=== PATIENT | male | born 1965 | race Hispanic/Latino ===

== ENCOUNTER 2020-04-17 12:48 | Inpatient (IN) | payer OTHER ==
[2020-04-17] VITALS (9 sets, daily range): BP systolic 78–121; BP diastolic 54–73
[~2020-04-17] VITALS: Ht 165.1 cm; Wt 101.9 kg
[2020-04-17] MEDS ORDERED: CLOP75TA14 PO (15:00)
[2020-04-17] MEDS ORDERED: ATEN100T PO (15:00)
[2020-04-17] MEDS ORDERED: METF-446 PO (15:09)
[2020-04-17] MEDS ORDERED: LISI1TAB32 PO (15:09)
[2020-04-17] MEDS ORDERED: GEMF600T PO (15:09)
[2020-04-17] MEDS ORDERED: ASPI-1197 PO (15:09)
[2020-04-17] MEDS ORDERED: LOVA20TA3 PO (15:09)
[2020-04-17] MEDS ORDERED: CIPR-279 PO (15:09)
[2020-04-17 15:35] LABS: BASOPHILS % (AUTO) 0.5 % (0.0-5.0); EOSINOPHILS % (AUTO) 0.9 % (0.0-8.0); HEMATOCRIT 38.2 % (42-54); LYMPHOCYTES % (AUTO) 32.9 % (21.0-51.0); MEAN CORPUSCULAR HEMOGLOBIN 28.4 pg (27.0-33.0); MEAN CORPUSCULAR HGB CONC 33.2 g/dL (32.0-36.0); MEAN CORPUSCULAR VOLUME 85.5 fL (79-99); MONOCYTES % (AUTO) 9.9 % (3.0-13.0); NEUTROPHILS % (AUTO) 55.4 % (40.0-77.0); NUCLEATED RED BLOOD CELLS 0.2 % (0.0-0.19); PLATELET COUNT (AUTO) 217 K/uL (130-400); RED BLOOD CELL COUNT(AUTO) 4.47 MIL/uL (4.50-6.20); RED CELL DISTRIBUTION WIDTH 13.4 % (11.0-15.5); WHITE BLOOD COUNT (AUTO) 11.2 K/uL (4.8-10.8)
[2020-04-17 15:48] LABS: INR 1.14 (0.85-1.15); PROTHROMBIN TIME 12.3 SEC (9.6-11.6)
[2020-04-17 15:49] LABS: CREATININE 1.8 mg/dL (0.5-1.5); POTASSIUM 3.5 mmol/L (3.5-5.1)
[2020-04-17 15:53] LABS: ALBUMIN 2.8 g/dL (3.5-5.0); BILIRUBIN,TOTAL 0.5 mg/dL (0.2-1.0); TOTAL PROTEIN, SERUM 7.1 g/dL (6.0-8.3)
[2020-04-17] MEDS ORDERED: IOHEXOL-350 50ML VIAL IV ONE (16:14)
[2020-04-17] MEDS ORDERED: LIDOCAINE HCL 2% 20ML ONE (16:14)
[2020-04-17] MEDS ORDERED: VERAPAMIL HCL 2.5 MG/ML VIAL ONE (16:14)
[2020-04-17] MEDS ORDERED: IOHEXOL 350 MG/ML 100ML INFUS..BTL IV ONE (16:14)
[2020-04-17] MEDS ORDERED: HEPARIN SODIUM 1000UNIT/ML 10ML VIAL ONE (16:14)
[2020-04-17] MEDS ORDERED: NITROGLYCERIN 2 MG/VIAL VIAL IV ONE (16:14)
[2020-04-17] MEDS ORDERED: NICARDIPINE HCL 25 MG/10 ML ML IV ONE (16:17)
[2020-04-17] MEDS ORDERED: FENTANYL CITRATE PF 50 MCG/1 ML 2ML VIAL ONE (16:27)
[2020-04-17] MEDS ORDERED: MIDAZOLAM HCL 1 MG/ML 2ML VIAL ONE (16:27)
[2020-04-17] MEDS: SODIUM CHLORIDE 0.9% 10 ML VIAL IVP SCH (17:45)
--- NOTE | 2020-04-17 18:49 | NUR ---
RECEIVED PT S/P [facility]. PT NOTED WITH SEVERAL BLOCKAGES AND WILL NEED OPEN HEART SURGERY PER REPORT. CONSULT FOR DR MONTIEL WRITTEN. RIGHT RADIAL BAND IN PLACE. 9ML OF AIR INFLATED. BEGAN DECOMPRESSION AT 1835. CONTINUOS DECOMPRESSION IS EVERY 15 MINUTES WHILE MAINTAINING HEMOSTASIS UNLESS OTHER BANDA NOTED. V/S ARE STABLE. PT SITTING UP AT SIDE OF BED, NOTIFYING FAMILY OF CONDITION AND STATUS. PLAVIX IS TO BE HELD UNTIL SEEN BY STS.
[2020-04-17] MEDS: METOPROLOL TARTRATE 25 MG TAB PO SCH (20:44)
[2020-04-17] MEDS: ACETAMINOPHEN 325 MG TAB PO PRN (20:44)
[2020-04-17] MEDS: FAMOTIDINE/PF 20 MG/2 ML VIAL IV SCH (20:44)
[2020-04-17] MEDS ORDERED: NITROGLYCERIN 0.4 MG SL TAB SL ONE (22:18)
[2020-04-17] MEDS ORDERED: HEPARIN 25000 UNITS/250 ML D5W 250 ML IV SCH (23:30)
--- NOTE | 2020-04-17 23:50 | NUR ---
Pt declining carotid ultrasound with tech. Pt will not stop moving in bed due to anxiety/SOB. Tech to reengage at later time. Discussed w/Dr. Grullon
[2020-04-17] MEDS ORDERED: HEPARIN 25000 UNITS/250 ML D5W 250 ML IV ONE (23:56)
[2020-04-18] VITALS (26 sets, daily range): BP systolic 91–132; BP diastolic 53–102
[2020-04-18] MEDS: ACETAMINOPHEN 325 MG TAB PO PRN (00:29)
[2020-04-18 00:44] LABS: BASOPHILS % (AUTO) 0.3 % (0.0-5.0); EOSINOPHILS % (AUTO) 0.1 % (0.0-8.0); HEMATOCRIT 39.1 % (42-54); LYMPHOCYTES % (AUTO) 21.6 % (21.0-51.0); MEAN CORPUSCULAR HEMOGLOBIN 28.5 pg (27.0-33.0); MEAN CORPUSCULAR HGB CONC 32.5 g/dL (32.0-36.0); MEAN CORPUSCULAR VOLUME 87.9 fL (79-99); MONOCYTES % (AUTO) 9.5 % (3.0-13.0); NEUTROPHILS % (AUTO) 67.8 % (40.0-77.0); NUCLEATED RED BLOOD CELLS 0.1 % (0.0-0.19); PLATELET COUNT (AUTO) 206 K/uL (130-400); RED BLOOD CELL COUNT(AUTO) 4.45 MIL/uL (4.50-6.20); RED CELL DISTRIBUTION WIDTH 13.4 % (11.0-15.5); WHITE BLOOD COUNT (AUTO) 15.3 K/uL (4.8-10.8)
[2020-04-18] MEDS ORDERED: HEPARIN SODIUM 5000UNIT/ML 1ML VIAL ONE (01:38)
[2020-04-18] MEDS: SODIUM CHLORIDE 0.9% 10 ML VIAL IVP SCH ×3 (01:45→17:45)
[2020-04-18 05:32] LABS: BASOPHILS % (AUTO) 0.3 % (0.0-5.0); EOSINOPHILS % (AUTO) 0.1 % (0.0-8.0); HEMATOCRIT 39.2 % (42-54); LYMPHOCYTES % (AUTO) 17.8 % (21.0-51.0); MEAN CORPUSCULAR HEMOGLOBIN 28.2 pg (27.0-33.0); MEAN CORPUSCULAR HGB CONC 32.1 g/dL (32.0-36.0); MEAN CORPUSCULAR VOLUME 87.7 fL (79-99); MONOCYTES % (AUTO) 8.2 % (3.0-13.0); PLATELET COUNT (AUTO) 217 K/uL (130-400); RED BLOOD CELL COUNT(AUTO) 4.47 MIL/uL (4.50-6.20); RED CELL DISTRIBUTION WIDTH 13.4 % (11.0-15.5); WHITE BLOOD COUNT (AUTO) 10.7 K/uL (4.8-10.8)
[2020-04-18 05:42] LABS: INR 1.29 (0.85-1.15); PROTHROMBIN TIME 13.8 SEC (9.6-11.6)
[2020-04-18 05:50] LABS: ALBUMIN 2.8 g/dL (3.5-5.0); CREATININE 2.5 mg/dL (0.5-1.5); POTASSIUM 5.6 mmol/L (3.5-5.1); TOTAL PROTEIN, SERUM 7.3 g/dL (6.0-8.3)
[2020-04-18 05:56] LABS: B-TYPE NATRIURETIC PEPTIDE 1380 pg/mL (0-100)
[2020-04-18 06:01] LABS: HEMOGLOBIN A1C 12.3 % (4.0-6.0)
[2020-04-18] MEDS: INSULIN LISPRO 100 UNIT/ML 3ML SQ SCH ×4 (06:47→22:56)
--- NOTE | 2020-04-18 06:56 | NUR ---
Pt with fall shortly after 0600. of patient was in room with pt and assisting pt with bathroom while fall occurred. While assisting pt with bathroom disconnected heparin gtt for maneuvering. Two staff members enforced to in Nepali to not disconnect IV tubing again. Both pt and deny pt hitting his head. Page out to provider regarding fall. No neurological deficits noted with pt.
[2020-04-18] MEDS ORDERED: FUROSEMIDE 10 MG/ML 4ML VIAL IV SCH (08:00)
[2020-04-18] MEDS ORDERED: ENOXAPARIN SODIUM 40 MG/0.4 ML SYRINGE SQ SCH (09:00)
[2020-04-18] MEDS: METOPROLOL TARTRATE 25 MG TAB PO SCH ×2 (09:00→22:47)
--- NOTE | 2020-04-18 09:00 | NUR ---
bird held bp 97/47. AWARE
[2020-04-18] MEDS: ASPIRIN 81MG TAB.CHEW PO SCH (09:05)
[2020-04-18] MEDS: ATORVASTATIN CALCIUM 40 MG TABLET PO SCH (09:05)
[2020-04-18] MEDS: FAMOTIDINE/PF 20 MG/2 ML VIAL IV SCH ×2 (09:05→21:00)
[2020-04-18] MEDS: FUROSEMIDE 100 MG in SODIUM CHLORIDE 0.9% 100 ML IV SCH (09:45)
--- NOTE | 2020-04-18 09:46 | NUR ---
Report given to nurse in day patient. Patient going to rm 4. Pulmonology consult discussed. Handoff nurse will call in consult. Lasix bolus dose has been started. Peripheral IV #20 started at [facility].
--- NOTE | 2020-04-18 10:00 | NUR ---
xiang notes patient pending transfer to icu- deferred discussion with spouse for dc planning at this time Addendum: 04/18/20 at 1947 by SARITA SHANKS RN CM Amended: Links added.
--- NOTE | 2020-04-18 10:30 | NUR ---
PTT 106.9 HEPARIN DRIP WAS STOPPED ACCORDING TO PROTOCOL AND RESUMED AGAIN AT 1130 AT 15UNITS/HR.
--- NOTE | 2020-04-18 10:30 | NUR ---
ICU TRANSFER PT ARRIVED TO ICU DP#[id number]. PT IN ACUTE RESPIRATORY DISTRESS. VERY ANXIOUS AND UNABLE TO LAY FLAT. NONREBREATHER AT 15L. AFTER ABOUT 20-30 MIN PT WAS ABLE TO HAVE LESS LABORED BREATHING AND TRY TO REMAIN CALM. LASIX DRIP AT 10ML/HR. MAHAJAN CATHETER WAS ATTEMPTED BUT UNSUCCESSFUL. MULTIPLE ATTEMPTS FOR PLACEMENT OF MAHAJAN CATHETER WERE DONE INCLUDING 12F KUDA. ETOH WITHDRAWAL PROTOCOL WAS INITIATED. AT [address]30 [address] GUTHRIE SPOKE WITH PT ABOUT THE NEED FOR IMPELLA DEVICE. CONSENT OBTAINED BY , CALDERON PEDRO. PT TAKEN BY MANAGER [employer] CREW AT 1330.
[2020-04-18] MEDS ORDERED: CHLORDIAZEPOXIDE HCL 25 MG CAP PO PRN (11:30)
[2020-04-18] MEDS ORDERED: LORAZEPAM 2 MG/ML 1 ML VIAL IVP PRN (11:30)
[2020-04-18] MEDS ORDERED: PHARMACY COMMUNICATION MISC PRN (11:30)
[2020-04-18 11:33] LABS: ABG BASE EXCESS -11.2 mmol/L (-2.0-3.0); ABG HCO3 13.1 mmol/L (21.0-28.0); ABG OXYGEN SATURATION 95.7 % (95.0-99.0); ABG PCO2 26 mmHg (35-48)
[2020-04-18] MEDS: SODIUM POLYSTYRENE SULFONATE 15 GM/60 ML ML PO SCH (11:45)
[2020-04-18] MEDS ORDERED: HEPARIN 25000 UNITS/250 ML D5W 0 ML IV ONE (13:28)
[2020-04-18] MEDS ORDERED: HEPARIN SODIUM 1000UNIT/ML 10ML VIAL ONE (13:29)
[2020-04-18] MEDS ORDERED: MIDAZOLAM HCL 1 MG/ML 2ML VIAL ONE (13:29)
[2020-04-18] MEDS ORDERED: FENTANYL CITRATE PF 50 MCG/1 ML 2ML VIAL ONE (13:29)
[2020-04-18] MEDS ORDERED: IOHEXOL 350 MG/ML 100ML INFUS..BTL IV ONE (13:29)
[2020-04-18] MEDS ORDERED: LIDOCAINE HCL 2% 20ML ONE (13:30)
[2020-04-18] MEDS ORDERED: LIDOCAINE PF 2% 5ML ABBOJECT ONE (13:55)
[2020-04-18] MEDS ORDERED: DOPAMINE HCL 400 MG/D5%-WATER 0 ML IV ONE (13:55)
[2020-04-18] MEDS ORDERED: ATROPINE SULFATE 0.1 MG/ML 10 ML SYG IVP ONE (13:55)
[2020-04-18] MEDS ORDERED: PERFLUTREN PROTEIN-A MICROSPHR 0.22 MG/ML VIAL IV ONE (14:41)
[2020-04-18] MEDS ORDERED: SODIUM CHLORIDE 0.9% 500ML 500 ML IV SCH (15:43)
[2020-04-18] MEDS ORDERED: HEPARIN 25000 UNITS/250 ML D5W 250 ML IV SCH (15:45)
[2020-04-18] MEDS ORDERED: HEPARIN SODIUM 5000 UNIT/ML 25,000 UNIT in DEXTROSE 5%-WATER 495 ML IV SCH (15:45)
--- NOTE | 2020-04-18 16:08 | NUR ---
RD NOTIFICATION Pt admitted with Acute coronary syndrome. History of DM, HTN, Vascular Dz, heart Catheterization. Pt tolerating 75gm CCD with no report of GI distress, Good PO intake at 100%. Monitored labs: BG 391, A1C 12.3%, Cr 2.5, GFR 29, BUN 40, ALT 206, AST 271, LDL 120, Alb 2.8. Obesity Class II. Recommend Renal Non-Dialysis diet order Recommend 30GM CCD modification Diabetes Nutrition Education (Taiwanese) Faxed to Day Pt, RN notified. RD to continue to monitor. Please notify as additional nutrition concerns arise. Thank you. Addendum: 04/18/20 at [address] Amended: Links added.
--- NOTE | 2020-04-18 16:14 | NUR ---
NUTRITION SYSTEM SUPPORT TECHNICIAN-Assisted Nutrition education. Diabetes Nutrition Education (German) Faxed to Day Pt RN notified. Addendum: 04/18/20 at [address] Amended: Links added.
--- NOTE | 2020-04-18 16:42 | NUR ---
ASSESSMENT Received pt to CVR/PACU bed 19 from production laborer. Upon arrival, pt AA - restless but cooperative. ST on tele with distant apical heart tones. Denies acute chest pain or pressure. VS as recorded. Impella in use via right femoral artery sheath - no hematoma noted but oozing noted from insertion site. Right femoral vein cannulated with 9fr sheath with PA catheter introduced via this site. Pending post procedure CXR for confirmation of PA catheter placement. Left femoral arterial line in place - 6fr sheath. Waveform acceptable. Skin is warm, dry. PIV x2 patent to RH and RAC. Heparin gtt infusing @15units/kg/hr, lasix gtt @10mg/hr. Pt due to void post procedure. Pt made aware of activity restrictions post procedure - voiced understanding. Initial post procedure care regarding Impella carried out - ECHO performed at bedside for catheter placement verification. Assessment completed/recorded.
[2020-04-18 17:40] LABS: ABG BASE EXCESS -6.1 mmol/L (-2.0-3.0); ABG HCO3 18.2 mmol/L (21.0-28.0); ABG PCO2 32 mmHg (35-48)
[2020-04-18 17:46] LABS: ABG OXYGEN SATURATION 48.2 % (95.0-99.0); BASE EXCESS,VENOUS BLOOD GAS -4.4 (-2.0-3.0); HCO3,VENOUS BLOOD GAS 20.8 (21.0-28.0); PCO2,VENOUS BLOOD GAS 39 (35-48); PH,VENOUS BLOOD GAS 7.347 (7.350-7.450)
--- NOTE | 2020-04-18 17:48 | NUR ---
HEMODYNAMICS Utilizing Mary calculation, CO 3.4L/min, CI 1.6L/min/m2, stroke volume 34mL/beat.
--- NOTE | 2020-04-18 18:30 | NUR ---
ULTRASOUND Renal US performed at bedside.
--- NOTE | 2020-04-18 19:00 | NUR ---
MD VISIT in to see pt - updated. Current hemodynamics reviewed with MD. Additional orders received - refer to EMR. Care of pt endorsed to 7P RN.
--- NOTE | 2020-04-18 19:00 | NUR ---
Dr. Gonsalves at bedside and stated he is pleased with the current status of patient. Orders received for main medication.
[2020-04-18] MEDS ORDERED: HEPARIN SODIUM 5000 UNIT/ML 25,000 UNIT in DEXTROSE 5%-WATER 500 ML SQ SCH (19:15)
--- NOTE | 2020-04-18 19:30 | NUR ---
Dr. Castro called for consult notification.
[2020-04-18] MEDS: FENTANYL CITRATE PF 50 MCG/1 ML 2ML VIAL IVP PRN (20:10)
[2020-04-19] VITALS (19 sets, daily range): BP systolic 84–129; BP diastolic 63–100
[2020-04-19 00:08] LABS: ABG BASE EXCESS -5.7 mmol/L (-2.0-3.0); ABG HCO3 18.8 mmol/L (21.0-28.0); ABG OXYGEN SATURATION 95.3 % (95.0-99.0); ABG PCO2 33 mmHg (35-48)
[2020-04-19 00:13] LABS: ABG OXYGEN SATURATION 53.5 % (95.0-99.0); BASE EXCESS,VENOUS BLOOD GAS -4.9 (-2.0-3.0); PCO2,VENOUS BLOOD GAS 42 (35-48); PH,VENOUS BLOOD GAS 7.319 (7.350-7.450)
--- NOTE | 2020-04-19 00:21 | NUR ---
HEMODYNAMICS Utilizing Mary calculation, CO 4.0L/min, CI 1.8L/min/m2, stroke volume 38mL/beat.
[2020-04-19] MEDS: FENTANYL CITRATE PF 50 MCG/1 ML 2ML VIAL IVP PRN ×3 (00:30→08:16)
[2020-04-19] MEDS: SODIUM CHLORIDE 0.9% 10 ML VIAL IVP SCH ×3 (02:24→17:49)
[2020-04-19 05:06] LABS: ABG BASE EXCESS -4.3 mmol/L (-2.0-3.0); ABG HCO3 19.7 mmol/L (21.0-28.0); ABG OXYGEN SATURATION 93.6 % (95.0-99.0); ABG PCO2 33 mmHg (35-48)
[2020-04-19 05:08] LABS: ABG BASE EXCESS -3.4 mmol/L (-2.0-3.0); ABG HCO3 21.8 mmol/L (21.0-28.0); ABG OXYGEN SATURATION 45.8 % (95.0-99.0); ABG PCO2 40 mmHg (35-48)
--- NOTE | 2020-04-19 05:11 | NUR ---
HEMODYNAMICS Utilizing Mary calculation, CO 3.5L/min, CI 1.7L/min/m2, stroke volume 37mL/beat.
[2020-04-19 05:53] LABS: BASOPHILS % (AUTO) 0.5 % (0.0-5.0); EOSINOPHILS % (AUTO) 0.1 % (0.0-8.0); HEMATOCRIT 33.7 % (42-54); MEAN CORPUSCULAR HEMOGLOBIN 28.4 pg (27.0-33.0); MEAN CORPUSCULAR HGB CONC 32.9 g/dL (32.0-36.0); MEAN CORPUSCULAR VOLUME 86.2 fL (79-99); MONOCYTES % (AUTO) 9.2 % (3.0-13.0); NEUTROPHILS % (AUTO) 68.5 % (40.0-77.0); NUCLEATED RED BLOOD CELLS 0.4 % (0.0-0.19); PLATELET COUNT (AUTO) 182 K/uL (130-400); RED BLOOD CELL COUNT(AUTO) 3.91 MIL/uL (4.50-6.20); RED CELL DISTRIBUTION WIDTH 13.4 % (11.0-15.5); WHITE BLOOD COUNT (AUTO) 10.7 K/uL (4.8-10.8)
[2020-04-19 06:43] LABS: ALBUMIN 2.4 g/dL (3.5-5.0); BILIRUBIN,TOTAL 1.2 mg/dL (0.2-1.0); CREATININE 2.9 mg/dL (0.5-1.5); MAGNESIUM 1.9 mg/dL (1.80-2.40); POTASSIUM 4.3 mmol/L (3.5-5.1); TOTAL PROTEIN, SERUM 6.6 g/dL (6.0-8.3)
[2020-04-19] MEDS: FAMOTIDINE/PF 20 MG/2 ML VIAL IV SCH (08:15)
[2020-04-19] MEDS: FUROSEMIDE 100 MG in SODIUM CHLORIDE 0.9% 100 ML IV SCH (08:17)
[2020-04-19] MEDS: ASPIRIN 81MG TAB.CHEW PO SCH (08:27)
[2020-04-19] MEDS: METOPROLOL TARTRATE 25 MG TAB PO SCH (08:27)
[2020-04-19] MEDS ORDERED: FOLIC ACID 1 MG TABLET PO SCH (09:00)
[2020-04-19] MEDS ORDERED: THIAMINE HCL 100 MG/ML 2ML VIAL IM SCH (09:00)
[2020-04-19] MEDS ORDERED: MULTIVITAMIN TABLET PO SCH (09:00)
[2020-04-19] MEDS: INSULIN LISPRO 100 UNIT/ML 3ML SQ SCH (09:31)
[2020-04-19] MEDS ORDERED: ETOMIDATE 2 MG/ML 10 ML VIAL ONE (09:39)
[2020-04-19] MEDS ORDERED: SUCCINYLCHOLINE CHLORIDE 20 MG/ML 10 ML VIAL ONE (09:40)
[2020-04-19] MEDS ORDERED: DEXMEDETOMIDINE HCL 200 MCG in SODIUM CHLORIDE 0.9% 50 ML IV SCH (09:45)
--- NOTE | 2020-04-19 09:50 | NUR ---
INTUBATED PT STARTED TO HAVE ACUTE RESPIRATORY FAILURE WITH ABDOMINAL BREATHING. INTUBATION ORDERS GIVEN BY SEAMUS ALMANZAR. DR. REY INTUBATED PT AT 0950. BP STARTED TO DROP AND LEVOPHED WAS STARTED. DR. ZAVALA CAME BY TO SEE PT AND ORDERED TO HOLD LASIX. DR. MONTIEL STATED THAT PT IS TOO UNSTABLE FOR SURGERY.
[2020-04-19] MEDS ORDERED: FENTANYL CITRATE PF 0.05 MG/ML 1,000 MCG in SODIUM CHLORIDE 0.9% 100 ML IVPB SCH (10:00)
[2020-04-19] MEDS ORDERED: MIDAZOLAM 100MG-0.9% NS 100ML 100ML BAG IV SCH (10:00)
[2020-04-19 10:22] LABS: ABG BASE EXCESS -13.4 mmol/L (-2.0-3.0); ABG HCO3 12.7 mmol/L (21.0-28.0); ABG OXYGEN SATURATION 92.7 % (95.0-99.0); ABG PCO2 30 mmHg (35-48)
[2020-04-19] MEDS ORDERED: SODIUM BICARB 50MEQ 50ML VIAL IV SCH ×3 (11:00→16:00)
[2020-04-19] MEDS ORDERED: NOREPINEPHRINE BITARTRATE 8 MG in SODIUM CHLORIDE 0.9% 250 ML IV SCH (11:00)
[2020-04-19] MEDS: ATORVASTATIN CALCIUM 40 MG TABLET PO SCH (11:12)
[2020-04-19] MEDS: SODIUM POLYSTYRENE SULFONATE 15 GM/60 ML ML PO SCH (11:14)
--- NOTE | 2020-04-19 13:00 | NUR ---
HEMODYNAMICS BASED ON ARTERIAL AND VENOUS ABG. CARDIAC OUTPUT 4.6L/MIN. CARDIAC INDEX 2.2L/MIN/M. STROKE VOLUME 42ML/BEAT
[2020-04-19 13:24] LABS: ABG BASE EXCESS -14.4 mmol/L (-2.0-3.0); ABG HCO3 10.6 mmol/L (21.0-28.0); ABG OXYGEN SATURATION 94.6 % (95.0-99.0); ABG PCO2 24 mmHg (35-48)
[2020-04-19 13:27] LABS: ABG OXYGEN SATURATION 61.4 % (95.0-99.0); BASE EXCESS,VENOUS BLOOD GAS -12.1 (-2.0-3.0); HCO3,VENOUS BLOOD GAS 14.2 (21.0-28.0); PCO2,VENOUS BLOOD GAS 34 (35-48)
[2020-04-19] MEDS ORDERED: SODIUM BICARB 8.4% 50ML SYRING 150 MEQ in DEXTROSE 5%-WATER 1,000 ML IV SCH (14:00)
[2020-04-19] MEDS ORDERED: VASOPRESSIN 20 UNITS in SODIUM CHLORIDE 0.9% 100 ML IV SCH (14:00)
--- NOTE | 2020-04-19 14:00 | NUR ---
NO PULSE ON RIGHT LEG DR. ZAVALA CAME AT 1040 AND SAW PT. INFORMED OF NO PEDAL PULSE ON RIGHT FOOT. PAGED AGAIN AT 1400 AND INFORMED OF PT'S DETERORATING STATUS, SEVERE HYPOTENSION. ASLO INFORMED OF NO PULSE, MOTTLED, COLD RIGHT EXTREMITY.
[2020-04-19] MEDS ORDERED: FUROSEMIDE 10 MG/ML 4ML VIAL IV SCH (14:15)
[2020-04-19] MEDS ORDERED: EPINEPHRINE 2 MG in SODIUM CHLORIDE 0.9% 250 ML IV SCH (15:00)
[2020-04-19] MEDS ORDERED: ALBUMIN (HUMAN) 5% 250 ML IV SCH (15:30)
--- NOTE | 2020-04-19 15:40 | NUR ---
FAMILY VISIT , CALDERON PEDRO CAME TO SEE PT AND INFORMED OF DETERIORATING CONDITION. REQUESTED PT BE FULL CODE.
[2020-04-19] MEDS ORDERED: EPINEPHRINE 10 MG in SODIUM CHLORIDE 0.9% 250 ML IV SCH (16:45)
[2020-04-19] MEDS ORDERED: NOREPINEPHRINE BITARTRATE 32 MG in SODIUM CHLORIDE 0.9% 250 ML IV SCH (16:45)
[2020-04-19 16:46] LABS: HEMATOCRIT 32.6 % (42-54); MEAN CORPUSCULAR HGB CONC 31.3 g/dL (32.0-36.0); MEAN CORPUSCULAR VOLUME 92.6 fL (79-99); NUCLEATED RED BLOOD CELLS 3.5 % (0.0-0.19); PLATELET COUNT (AUTO) 174 K/uL (130-400); RED BLOOD CELL COUNT(AUTO) 3.52 MIL/uL (4.50-6.20); RED CELL DISTRIBUTION WIDTH 13.9 % (11.0-15.5); WHITE BLOOD COUNT (AUTO) 11.9 K/uL (4.8-10.8)
[2020-04-19 17:07] LABS: CREATININE 4.4 mg/dL (0.5-1.5); POTASSIUM 5.9 mmol/L (3.5-5.1)
[2020-04-19] MEDS ORDERED: NOREPINEPHRINE BITARTRATE 1 MG/1 ML ML IV ONE (17:11)
[2020-04-19 17:35] LABS: LYMPHOCYTES % (MANUAL) 22 % (22-44); MAN.DIFF COMMENT-IMPRESSION MANUAL DIFFERENTIAL; MONOCYTES % (MANUAL) 2 % (2-9); SEGMENTED NEUTROPHILS % 76 % (40-70)
[2020-04-19 17:36] LABS: PLATELET MORPHOLOGY COMMENT ADEQUATE
--- NOTE | 2020-04-19 18:12 | NUR ---
PT MAX OUT ON LEVO, VASO, AND EPI. SBP IN THE 70s. PT STARTED TO BECOME PITO AND FOUND TO HAVE PEA. ALS PROTOCOL WAS INITIATED. TIME OF CALLED AT 1811. MADE AWARE OF SITUATION. PRIMARY DOCTOR AND CONSULTING DOCTORS WERE CALLED AND INFORMED.
== END 2020-04-19 18:12 | disposition expired | DRG 215 ==
LOC: DAHIP 14:13 → 4BH 21:56 → DAHIP 04-18 09:44 → PAH.CVR 04-18 16:31
PROVIDERS: ADMIT Internal Medicine; ATTEND Internal Medicine
PROC: 4A023N7 Measurement of Cardiac Sampling and Pressure, Left Heart, Percutaneous Approach (ICD-10-PCS; principal; 2020-04-17)
PROC: B2111ZZ Fluoroscopy of Multiple Coronary Arteries using Low Osmolar Contrast (ICD-10-PCS; 2020-04-17)
PROC: 02HA3RZ Insertion of Short-term External Heart Assist System into Heart, Percutaneous Approach (ICD-10-PCS; 2020-04-17)
PROC: 5A0221D Assistance with Cardiac Output using Impeller Pump, Continuous (ICD-10-PCS; 2020-04-17)
PROC: B41G1ZZ Fluoroscopy of Left Lower Extremity Arteries using Low Osmolar Contrast (ICD-10-PCS; 2020-04-17)
PROC: B41F1ZZ Fluoroscopy of Right Lower Extremity Arteries using Low Osmolar Contrast (ICD-10-PCS; 2020-04-17)
PROC: 5A1935Z Respiratory Ventilation, Less than 24 Consecutive Hours (ICD-10-PCS; 2020-04-19)
PROC: 0BH17EZ Insertion of Endotracheal Airway into Trachea, Via Natural or Artificial Opening (ICD-10-PCS; 2020-04-19)
DX: I21.4 Non-ST elevation (NSTEMI) myocardial infarction (principal); I50.23 Acute on chronic systolic (congestive) heart failure; J96.01 Acute respiratory failure with hypoxia; K72.00 Acute and subacute hepatic failure without coma; I13.0 Hypertensive heart and chronic kidney disease with heart failure and stage 1 through stage 4 chronic kidney disease, or unspecified chronic kidney disease; I69.354 Hemiplegia and hemiparesis following cerebral infarction affecting left non-dominant side; N17.9 Acute kidney failure, unspecified; F14.10 Cocaine abuse, uncomplicated; E78.5 Hyperlipidemia, unspecified; Z68.35 Body mass index [BMI] 35.0-35.9, adult; E66.9 Obesity, unspecified; E11.22 Type 2 diabetes mellitus with diabetic chronic kidney disease; E78.00 Pure hypercholesterolemia, unspecified; F17.200 Nicotine dependence, unspecified, uncomplicated; F41.9 Anxiety disorder, unspecified; I25.10 Atherosclerotic heart disease of native coronary artery without angina pectoris; I25.5 Ischemic cardiomyopathy; N18.9 Chronic kidney disease, unspecified; N35.919 Unspecified urethral stricture, male, unspecified site; R57.0 Cardiogenic shock; I25.2 Old myocardial infarction; Z95.5 Presence of coronary angioplasty implant and graft
CPT/HCPCS: 31500; 33990; 36415; 36600; 71045; 76770; 80048; 80053; 80061; 82435; 82803; 82947; 82948; 83036; 83605; 83735; 83880; 84100; 84132; 84295; 84484; 85018; 85025; 85347; 85610; 85730; 92950; 93005; 93308; 93356; 93451; 93458; 93880; 94002; 94010; 99156; 99157; C1760; C1769; C1894; C8929; G0378; J0171; J0330; J0461; J1265; J1644; J1940; J2001; J2060; J2250; J3010; J3411; J3490; J7050; J7060; J7070; P9045; Q9967